=== PATIENT | male | born 1960 | race Caucasian/White ===

== ENCOUNTER → 2016-06-29 | Outpatient (CLI) | payer OTHER ==
--- NOTE | 2016-07-02 08:41 | MRI ---
HISTORY: Chronic low back pain Study: MRI lumbar spine without contrast Comparison: Plain films May 12, 2014 Technique: Multiplanar multi-sequence MRI of the lumbar spine was obtained. Sagittal T1, sagittal T 2, and stir weighted images, axial T1, and axial T2 images were obtained. Findings: There is slight anterolisthesis L3 on L4. The lumbar spine demonstrates otherwise normal alignment w ith the expected signal characteristics of the bone marrow. The conus of the cord terminates normal ly. T12 -- L1: No evidence for compressive disc disease. The neural foramina are patent. The joints are normal . L1 -- L2: No evidence for compressive disc disease. The neural foramina are patent. Mild facet arthr opathy is present. L2 -- L3: No evidence for compressive disc disease. The neural foramina are patent. Bilateral facet arthropathy is present. L3 -- L4: There is slight anterolisthesis L3 on L4. There is a large broad-based disc protrusion whi ch contributes along with bilateral facet arthropathy to lateral recess and foraminal narrowing bila terally worse on the right than the left. L4 -- L5: No evidence for compressive disc disease. However, spondylitic change contributes to later al recess and foraminal narrowing bilaterally worse on the left than the right. L5 -- S1: No evidence for compressive disc disease. The neural foramina are patent. The joints are n ormal. IMPRESSION: As above Reported By:
== END ==
LOC: RAD 10:48
PROVIDERS: ATTEND Nurse Practitioner Family
DX: M47.26 Other spondylosis with radiculopathy, lumbar region (principal)
CPT/HCPCS: 72148

== ENCOUNTER 2016-12-13 06:39 | Emergency (ER) | payer OTHER ==
[2016-12-13 06:50] VITALS: BP 179/95; BMI 40.4
[2016-12-13] MEDS ORDERED: TORADOL 30 MG VIAL IVP ONE (06:56)
[2016-12-13] MEDS ORDERED: NS 1000 ML 1,000 ML ONE (06:59)
[2016-12-13] MEDS ORDERED: TORADOL 30 MG VIAL ONE (06:59)
[2016-12-13] MEDS ORDERED: NS 1000 ML 1,000 ML IV SCH (07:00)
--- NOTE | 2016-12-13 07:00 | DR.GENAD ---
HPI - PCP Primary Care Physician: DARNELL - Complaint/Symptoms Chief Complaint Doctors Comments: Patient presents with left flank pain radiating to left inguinal area for the past two hours. He has no history of kidney stones. He admist to nausea. The pain is 10/10, sharp, moderate severe. Chief Complaint:: LEFT FLANK PAIN FOR LAST 3 HRS, N/V. HEMATURIA Self Treatment fo Chief Complaint: LORCET @ 2 HRS AGO - Source History Provided: Patient, Significant Other - Mode of Arrival Mode of Arrival: Ambulatory - Timing Onset of Chief Complaint: 12/13/16 PMH - PMH Past Medical History: Yes Past Medical History: Anxiety, Depression, Diabetes, Hypertension Past Medical History Comment: CHRONIC BACK PAIN. NEUROPATHY Past Surgical History: Yes Surgical History: Cholecystectomy - Family History History of Family Medical Conditions: Yes Family Medical History: Diabetes Mellitus, Hypertension - Social History Does patient currently use any type of tobacco product: No Have you used tobacco products in the last 12 months: No Type of Tobacco Use: None Alcohol Use: None Do you use any recreational Drugs:: No Lives With: Spouse Lives Where: Home - infectious screening Have you traveled outside the country in the last 6 months?: No Isolation: Standard ROS - Review of Systems Eyes: No Symptoms Reported ENTM: No Symptoms Reported Respiratoy: No Symptoms Reported Cardiovascular: No Symptoms Reported Gastrointestinal/Abdominal: No Symptoms Reported Genitourinary: Hematuria Neurological: No Symptoms Reported Musculoskeletal: Left (flank pain) Integumentary: No Symptoms Reported Hematologic/Lymphatic: No Symptoms Reported Endocrine: No Symptoms Reported Psychiatric: No Symptoms Reported All Other Systems: Reviewed and Negative PE - Vital Signs Vitals: Temperature 97.6 F Pulse Rate 65 Respiratory Rate 20 Blood Pressure 179/95 O2 Sat by Pulse Oximetry 96 - General Limitations: No Limitations General Appearance: Alert, In No Apparent Distress - Head Head Exam: Normal Inspection, Atraumatic - Eyes Eye exam: Normal Appearance, PERRL, EOMI - ENT ENT Exam: Normal Exam External Ear Exam: Normal External Inspection TM/Canal Exam: Bilateral Normal Nose Exam: Normal Nose Exam Mouth Exam: Normal Inspection Throat Exam: Normal Inspection - Neck Neck Exam: Normal Inspection - Chest Chest Inspection: Normal Inspection - Respiratory Respiratory Exam: Bilateral Clear to Auscultation - Cardiovascular Cardiovascular Exam: Regular Rate, Normal Rhythm - Abdominal Exam Abdominal Exam: Normal Inspection, Normal Bowel Sounds Abdominal Tenderness: negative: RUQ, RLQ, LUQ, LLQ, Epigastrium, Suprapubic, Diffuse, Mild, Moderate, Severe, Other - Extremities Extremities Exam: Normal Inspection, Full ROM - Back Back Exam: Normal Inspection, (L) CVA Tenderness - Neurologic Neurological Exam: Alert, Oriented X3, CN II-XII Intact - Psychiatric Psychiatric Exam: Normal Affect - Skin Skin Exam: Warm, Dry, Intact Course - Treatment Treatment: NS, Analgesics - Reevaluation 1st: Improved ROR - Labs Reviewed Result Diagrams: 12/13/16 07:06 12/13/16 07:06 Laboratory: Specimen Type Clean catch urine 12/13/16 07:05 Urine Color [place] (YELLOW) 12/13/16 07:05 Urine Appearance Hazy (CLEAR) 12/13/16 07:05 Urine pH 5.0 (5.0 - 8.0) 12/13/16 07:05 Ur Specific [place] 1.025 (1.000-1.030) 12/13/16 07:05 Urine Protein 2+ (NEGATIVE) 12/13/16 07:05 Urine Glucose (UA) 1+ (NEGATIVE) 12/13/16 07:05 Urine Ketones Negative (NEGATIVE) 12/13/16 07:05 Urine Occult Blood 5+ (NEGATIVE) 12/13/16 07:05 Urine Nitrite Negative (NEGATIVE) 12/13/16 07:05 Urine Bilirubin Negative (NEGATIVE) 12/13/16 07:05 Urine Urobilinogen Normal (NORMAL) 12/13/16 07:05 Ur Leukocyte Esterase Negative (NEGATIVE) 12/13/16 07:05 Urine RBC 40-50 /HPF (NEGATIVE) 12/13/16 07:05 Urine WBC 2-3 /HPF (NEGATIVE) 12/13/16 07:05 Ur Squamous Epith Cells Rare /HPF (NEGATIVE) 12/13/16 07:05 Urine Bacteria Trace /HPF (NEGATIVE) 12/13/16 07:05 Ur Culture Indicated? No/not indicated 12/13/16 07:05 - XRAY XRAY Interpreted by: Radiologist (CT ABD/Pel: There is left sided hydronephrosis proximal to a 4mm calculus located at the left ureteral pelvic junction. More distally the ureter is normal. No left renal calculi are identified. The right kedney is unobstructed and without stones. No right ureteral calculus is identified. The appendix is normal. There is calcific atherosclerotic change in a nondilated abdominalo aorta..) - Diagnosis Discharge Problem: Left ureteral calculus, Hydronephrosis of left kidney - Discharge Plan Condition: Stable - Follow ups/Referrals Follow ups/Referrals: JAJA PATRICK [Primary Care Provider] - 3 days - Instructions
[2016-12-13] MEDS ORDERED: ZOFRAN INJ 4 MG VIAL ONE (07:06)
[2016-12-13] MEDS ORDERED: ZOFRAN INJ 4 MG VIAL IVP ONE (07:06)
[2016-12-13 07:12] LABS: BILIRUBIN,URINE NEGATIVE (NEGATIVE); BLOOD/HEMOGLOBIN,URINE 5+ (NEGATIVE); GLUCOSE, URINE 1+ (NEGATIVE); KETONES,URINE NEGATIVE (NEGATIVE); LEUKOCYTE ESTERASE ,URINE NEGATIVE (NEGATIVE); NITRITES,URINE NEGATIVE (NEGATIVE); PROTEIN,URINE 2+ (NEGATIVE); UROBILINOGEN,URINE NORMAL (NORMAL)
[2016-12-13 07:22] LABS: APPEARANCE,URINE HAZY (CLEAR); BACTERIA,URINE TRACE /HPF (NEGATIVE); COLOR,URINE AMBER (YELLOW); RBC,URINE 40-50 /HPF (NEGATIVE); SQUAMOUS EPITHELIAL CELL,UR RARE /HPF (NEGATIVE)
[2016-12-13] MEDS ORDERED: MORPHINE SULFATE INJ 4 MG IVP ONE ×2 (07:25→07:27)
[2016-12-13] MEDS ORDERED: MORPHINE SULFATE INJ 4 MG ONE (07:26)
--- NOTE | 2016-12-13 07:54 | CT ---
HISTORY: Left flank pain, hematuria Study: CT abdomen pelvis without contrast Comparison: 09/18/2013 (report) Technique: Axial noncontrast images with coronal and sagittal reformats. Dose reduction procedures we re used with mA/kv adjusted for body size. Findings: The lung bases are clear. Coronary artery calcifications are present. The liver, spleen, adrenal glan ds, and pancreas are within normal limits to the limitations of an unenhanced examination. The patien t is status post cholecystectomy. There is left-sided hydronephrosis proximal to a 4 mm calculus loca efrem at the left ureteral pelvic junction. More distally the ureter is normal. No left renal calculi a re identified. The right kidney is unobstructed and without stones. No right ureteral calculus is fito ntified. The appendix is normal. There is calcific atherosclerotic change in a nondilated abdominal a jyoti. No significant intraperitoneal or retroperitoneal lymphadenopathy is identified. There are no f indings suggestive of diverticulitis or colitis. Examination of the pelvis demonstrated no evidence f or pelvic masses, pelvic fluid, or pelvic lymphadenopathy. No bladder abnormality is identified. No l ytic or blastic skeletal lesions are identified. IMPRESSION: 4 mm obstructing proximal left ureteral calculus located at or near the left ureteropelvic junction Reported By:
[2016-12-13 08:03] LABS: BASOPHILS % (AUTO) 0.5 % (0.2-1.0); EOSINOPHILS # (AUTO) 0.3 x10^3/uL (0.0-0.2); EOSINOPHILS % (AUTO) 3.8 % (0.9-2.9); HEMATOCRIT 39.8 % (42.0-54.0); HEMOGLOBIN 13.7 g/dL (13.5-18.0); LYMPHOCYTES # (AUTO) 0.7 X10^3/uL (1.3-2.9); LYMPHOCYTES % (AUTO) 7.2 % (21.0-51.0); MEAN CORPUSCULAR HEMOGLOBIN 30.2 pg (27.0-34.0); MEAN CORPUSCULAR HGB CONC 34.5 g/dL (33.0-35.0); MEAN CORPUSCULAR VOLUME 87.4 fL (80.0-100.0); MEAN PLATELET VOLUME 9.1 fL (7.4-11.0); MONOCYTES # (AUTO) 0.5 x10^3/uL (0.3-0.8); MONOCYTES % (AUTO) 5.7 % (0.0-13.0); NEUTROPHILS # (AUTO) 7.5 x10^3/uL (2.2-4.8); NEUTROPHILS % (AUTO) 82.8 % (42.0-75.0); PLATELET COUNT 195 X10^3/uL (150.0-450.0); RED BLOOD COUNT 4.56 X10^6/uL (4.7-6.0); RED CELL DISTRIBUTION WIDTH 13.5 % (11.6-16.5); WHITE BLOOD COUNT 9.1 X10^3/uL (3.6-10.0)
[2016-12-13 08:06] LABS: BLOOD UREA NITROGEN 23 mg/dL (7-18); CALCIUM 9.1 mg/dL (8.5-10.1); CARBON DIOXIDE 25.7 mmol/L (21-32); CHLORIDE 105 mmol/L (98-107); COR NA(FOR HYPERGLY) 141 mmol/L (136-145); CREATININE 1.28 mg/dL (0.70-1.30); SODIUM 139 mmol/L (136-145); eGFR BLACK RACES > 60 (>60); eGFR NON BLACK RACES > 60 (>60)
== END 2016-12-13 08:17 | disposition home or self-care (01) ==
LOC: ER 06:39
DX: N20.1 Calculus of ureter (principal); N13.39 Other hydronephrosis
CPT/HCPCS: 36415; 74176; 80048; 81001; 85025; 96365; 96374; 96375; 99283; A4222; J1885; J2270; J2405

== ENCOUNTER 2016-12-16 18:22 | Emergency (ER) | payer OTHER ==
[2016-12-16 18:44] VITALS: BMI 40.4
[2016-12-16] MEDS ORDERED: ZOFRAN INJ 4 MG VIAL IVP ONE (18:49)
[2016-12-16] MEDS ORDERED: ZOFRAN INJ 4 MG VIAL ONE (18:49)
[2016-12-16] MEDS ORDERED: DILAUDID INJ IVP ONE (18:50)
[2016-12-16] MEDS ORDERED: DILAUDID INJ ONE (18:50)
[2016-12-16] MEDS ORDERED: NS 1000 ML 1,000 ML IV ONE (18:50)
[2016-12-16] MEDS ORDERED: NS 1000 ML 1,000 ML ONE (18:50)
[2016-12-16 18:56] LABS: BILIRUBIN,URINE NEGATIVE (NEGATIVE); BLOOD/HEMOGLOBIN,URINE 5+ (NEGATIVE); GLUCOSE, URINE 3+ (NEGATIVE); KETONES,URINE NEGATIVE (NEGATIVE); LEUKOCYTE ESTERASE ,URINE NEGATIVE (NEGATIVE); NITRITES,URINE NEGATIVE (NEGATIVE); PROTEIN,URINE 1+ (NEGATIVE); UROBILINOGEN,URINE NORMAL (NORMAL)
--- NOTE | 2016-12-16 19:02 | DR.GENAD ---
HPI - PCP Primary Care Physician: Colin - HPI Comment HPI Comment: PATIENT DIAGNOSE WITH LT PROXIMA KIDNEY STONE NEAR UP JUNCTION. PATIENT SEEN IN [facility] YESTERDAY WITH STONE AT THE SAME LEVEL. PRESENT TONIGHT WITH INCREASING PAIN NOT RESPONDING TO HOME MED. NO FEVER. URINE OUT PUT DECREASE TODAY. - Complaint/Symptoms Chief Complaint Doctors Comments: LEFT FLANK PAIN TIMES 4 DAYS. Chief Complaint:: "I have a kidney stone. I came here and they said it was a 4mm stone. They told me that it would pass. I started hurting again so I went to [facility] Saturday and they said it was a 2mm stone and it would pass. I am in excrusiating pain now." Self Treatment fo Chief Complaint: Pain medication, flomax, and lasix - Nurses notes reviewed Nurses Notes Review: Yes - Source History Provided: Patient, Family Member - Mode of Arrival Mode of Arrival: Wheelchair - Timing Onset of Chief Complaint: 12/12/16 Came on: Gradually - Duration Duration: Constant Duration: Days - Severity Severity: Moderate PMH - PMH Past Medical History: Yes Past Medical History: Anxiety, Depression, Diabetes, Hypertension Past Surgical History: Yes Surgical History: Cholecystectomy - Family History History of Family Medical Conditions: Yes Family Medical History: Diabetes Mellitus, Hypertension - Social History Does patient currently use any type of tobacco product: No Have you used tobacco products in the last 12 months: No Type of Tobacco Use: None Does any household member use tobacco: No Alcohol Use: None Do you use any recreational Drugs:: No Lives With: Family Lives Where: Home - infectious screening In the last 2 months have you had wt loss of >10#?: NO Have you had fever, night sweats or hemotysis?: No Have you traveled outside the country in the last 6 months?: No Isolation: Standard ROS - Review of Systems Constitutional: No Symptoms Reported Eyes: No Symptoms Reported ENTM: No Symptoms Reported Respiratoy: No Symptoms Reported Cardiovascular: No Symptoms Reported Gastrointestinal/Abdominal: No Symptoms Reported Genitourinary: Other (DECREASE URINE OUTPUT.) Neurological: No Symptoms Reported Musculoskeletal: Back Pain, Other (LT FLANK PAIN.) Integumentary: No Symptoms Reported Hematologic/Lymphatic: No Symptoms Reported Endocrine: No Symptoms Reported All Other Systems: Reviewed and Negative PE - Vital Signs Vitals: Temperature 98.6 F Pulse Rate [Left] 70 Pulse Rate 74 Respiratory Rate 18 Blood Pressure [Right Arm] 139/80 Blood Pressure 168/81 O2 Sat by Pulse Oximetry 95 - General Limitations: No Limitations General Appearance: Alert - Head Head Exam: Normal Inspection - Eyes Eye exam: Normal Appearance - ENT ENT Exam: Normal External Ear Exam External Ear Exam: Normal External Inspection TM/Canal Exam: Bilateral Normal Nose Exam: Normal Nose Exam Mouth Exam: Normal Inspection Throat Exam: Normal Inspection - Neck Neck Exam: Trachea Midline - Chest Chest Inspection: Symmetric Chest Wall Rise - Respiratory Respiratory Exam: Normal Lung Sounds Bilat Respiratory Exam: Bilateral Rhonchi, Lower Rhonchi - Cardiovascular Cardiovascular Exam: Regular Rate, Normal Rhythm, Normal Heart Sounds - Abdominal Exam Abdominal Exam: Normal Bowel Sounds, Soft. negative: Tenderness - Extremities Extremities Exam: Normal Inspection - Back Back Exam: (L) CVA Tenderness, Paraspinal Tenderness (LOWER BACK) - Neurologic Neurological Exam: Alert, Oriented X3 - Psychiatric Psychiatric Exam: Normal Affect, Normal Mood - Skin Skin Exam: Normal Color MDM - Additional Information Additional Information Obtained From: Family - Differential Diagnosis Differential Diagnosis: LT KIDNEY STONE, LT FLANK PAIN Course - Treatment Treatment: SEE ORDERS. - Consultation Consultation Comments: DISCUSS PATIENT WITH UROLOGIST . HE WANT HOSPITALIST TO ADMIT PATIENT. DR. SANTIZO, HOSPITALIST WILL ADMIT PATIENT AT [facility]. - Education/Counseling Education/Counseling: Patient, Family, Education Educated On: Diagnosis ROR - Labs Reviewed Laboratory Results Reviewed?: Yes Result Diagrams: 12/16/16 19:20 Laboratory: Sodium 134 mmol/L (136-145) L 12/16/16 19:20 Corrected Sodium 138 mmol/L (136-145) 12/16/16 19:20 Potassium 3.4 mmol/L (3.5-5.1) L 12/16/16 19:20 Chloride 97 mmol/L (98-107) L 12/16/16 19:20 Carbon Dioxide 25.9 mmol/L (21-32) 12/16/16 19:20 BUN 22 mg/dL (7-18) H 12/16/16 19:20 Creatinine 1.81 mg/dL (0.70-1.30) H 12/16/16 19:20 Est GFR (MDRD) Af Amer 50 (>60) L 12/16/16 19:20 Est GFR (MDRD) Non-Af 41 (>60) L 12/16/16 19:20 Glucose 271 mg/dL (65-99) H 12/16/16 19:20 Calcium 9.1 mg/dL (8.5-10.1) 12/16/16 19:20 Corrected Calcium TNP 12/16/16 19:20 Total Bilirubin 0.60 mg/dL (0.2-1.0) 12/16/16 19:20 AST 15 Units/L (15-37) 12/16/16 19:20 ALT 24 Units/L (12-78) 12/16/16 19:20 Alkaline Phosphatase 71 Units/L (46-116) 12/16/16 19:20 Total Protein 7.5 g/dL (6.4-8.2) 12/16/16 19:20 Albumin 3.4 g/dL (3.4-5.0) 12/16/16 19:20 Globulin 4.1 g/dL (2.5-4.5) 12/16/16 19:20 Albumin/Globulin Ratio 0.8 Ratio (1.1-2.1) L 12/16/16 19:20 Specimen Type Clean catch urine 12/16/16 18:52 Urine Color Yellow (YELLOW) 12/16/16 18:52 Urine Appearance Clear (CLEAR) 12/16/16 18:52 Urine pH 5.0 (5.0 - 8.0) 12/16/16 18:52 Ur Specific [place] 1.015 (1.000-1.030) 12/16/16 18:52 Urine Protein 1+ (NEGATIVE) 12/16/16 18:52 Urine Glucose (UA) 3+ (NEGATIVE) 12/16/16 18:52 Urine Ketones Negative (NEGATIVE) 12/16/16 18:52 Urine Occult Blood 5+ (NEGATIVE) 12/16/16 18:52 Urine Nitrite Negative (NEGATIVE) 12/16/16 18:52 Urine Bilirubin Negative (NEGATIVE) 12/16/16 18:52 Urine Urobilinogen Normal (NORMAL) 12/16/16 18:52 Ur Leukocyte Esterase Negative (NEGATIVE) 12/16/16 18:52 Urine RBC 20-25 /HPF (NEGATIVE) 12/16/16 18:52 Urine WBC 0-3 /HPF (NEGATIVE) 12/16/16 18:52 Ur Squamous Epith Cells Few /HPF (NEGATIVE) 12/16/16 18:52 Urine Bacteria Trace /HPF (NEGATIVE) 12/16/16 18:52 Urine Sperm Moderate /HPF (NEGATIVE) 12/16/16 18:52 Ur Culture Indicated? No/not indicated 12/16/16 18:52 - Diagnosis Discharge Problem: Left ureteral calculus, Hydronephrosis of left kidney, Left flank pain - Discharge Plan Disposition: 02 XFER [facility] H[facility] Condition: Stable - Follow ups/Referrals Follow ups/Referrals: Rose Marie Shaw [Primary Care Provider] - 3 days - Instructions
[2016-12-16 19:04] LABS: APPEARANCE,URINE CLEAR (CLEAR); COLOR,URINE YELLOW (YELLOW)
[2016-12-16 19:05] LABS: BACTERIA,URINE TRACE /HPF (NEGATIVE); RBC,URINE 20-25 /HPF (NEGATIVE); SPERM,URINE MODERATE /HPF (NEGATIVE); SQUAMOUS EPITHELIAL CELL,UR FEW /HPF (NEGATIVE)
[2016-12-16 19:42] LABS: ALANINE AMINOTRANSFERASE 24 Units/L (12-78); ALBUMIN 3.4 g/dL (3.4-5.0); ALKALINE PHOSPHATASE 71 Units/L (46-116); ASPARTATE AMINO TRANSFERASE 15 Units/L (15-37); BLOOD UREA NITROGEN 22 mg/dL (7-18); CALCIUM 9.1 mg/dL (8.5-10.1); CARBON DIOXIDE 25.9 mmol/L (21-32); CHLORIDE 97 mmol/L (98-107); COR NA(FOR HYPERGLY) 138 mmol/L (136-145); CREATININE 1.81 mg/dL (0.70-1.30); SODIUM 134 mmol/L (136-145); TOTAL PROTEIN 7.5 g/dL (6.4-8.2); eGFR BLACK RACES 50 (>60); eGFR NON BLACK RACES 41 (>60)
[2016-12-16] MEDS ORDERED: TORADOL 30 MG VIAL IVP ONE (20:15)
[2016-12-16] MEDS ORDERED: TORADOL 30 MG VIAL ONE (20:27)
[2016-12-16 22:06] VITALS: BP 139/80
== END 2016-12-16 22:20 | disposition short-term general hospital (02) ==
LOC: ER 18:37
DX: N20.1 Calculus of ureter (principal); N13.39 Other hydronephrosis; R10.84 Generalized abdominal pain
CPT/HCPCS: 36415; 80053; 81001; 96365; 96367; 96374; 96375; 99285; A4222; J1170; J1885; J2405

== ENCOUNTER → 2017-05-15 | Outpatient (CLI) | payer OTHER ==
[2017-05-15 10:40] LABS: BASOPHILS % (AUTO) 0.4 % (0.2-1.0); EOSINOPHILS # (AUTO) 0.3 x10^3/uL (0.0-0.2); EOSINOPHILS % (AUTO) 4.9 % (0.9-2.9); HEMOGLOBIN 14.6 g/dL (13.5-18.0); LYMPHOCYTES # (AUTO) 1.5 X10^3/uL (1.3-2.9); MEAN CORPUSCULAR HEMOGLOBIN 29.8 pg (27.0-34.0); MEAN CORPUSCULAR HGB CONC 34.7 g/dL (33.0-35.0); MEAN CORPUSCULAR VOLUME 85.9 fL (80.0-100.0); MEAN PLATELET VOLUME 9.2 fL (7.4-11.0); MONOCYTES # (AUTO) 0.5 x10^3/uL (0.3-0.8); MONOCYTES % (AUTO) 7.2 % (0.0-13.0); NEUTROPHILS # (AUTO) 4.1 x10^3/uL (2.2-4.8); NEUTROPHILS % (AUTO) 64.5 % (42.0-75.0); PLATELET COUNT 202 X10^3/uL (150.0-450.0); RED BLOOD COUNT 4.88 X10^6/uL (4.7-6.0); RED CELL DISTRIBUTION WIDTH 13.6 % (11.6-16.5); WHITE BLOOD COUNT 6.3 X10^3/uL (3.6-10.0)
[2017-05-15 10:41] LABS: HEMOGLOBIN A1C 7.2 %
[2017-05-15 10:45] LABS: ALANINE AMINOTRANSFERASE 29 Units/L (12-78); ALBUMIN 3.9 g/dL (3.4-5.0); ALKALINE PHOSPHATASE 59 Units/L (46-116); ASPARTATE AMINO TRANSFERASE 15 Units/L (15-37); BLOOD UREA NITROGEN 23 mg/dL (7-18); CALCIUM 8.8 mg/dL (8.5-10.1); CARBON DIOXIDE 26.7 mmol/L (21-32); CHLORIDE 103 mmol/L (98-107); COR NA(FOR HYPERGLY) 142 mmol/L (136-145); CREATININE 1.21 mg/dL (0.70-1.30); SODIUM 139 mmol/L (136-145); eGFR BLACK RACES > 60 (>60); eGFR NON BLACK RACES > 60 (>60)
== END ==
LOC: LAB 10:14
PROVIDERS: ATTEND Psychiatry & Neurology Neurology
DX: I10 Essential (primary) hypertension (principal); E13.65 Other specified diabetes mellitus with hyperglycemia
CPT/HCPCS: 36415; 80053; 83036; 85025